=== PATIENT | male | born 1990 | race Hispanic/Latino ===

== ENCOUNTER 2017-11-06 00:53 | Emergency (ER) | payer OTHER ==
[2017-11-06] MEDS ORDERED: IBUPROFEN 400 MG TAB ONE (01:23)
[2017-11-06] MEDS ORDERED: AMOX/K CLAV 875 MG TAB ONE (01:23)
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
== END 2017-11-06 01:33 | disposition home or self-care (01) ==
LOC: ER 00:53
DX: J02.9 Acute pharyngitis, unspecified (principal)
CPT/HCPCS: 87081; 99283

== ENCOUNTER 2020-10-07 09:37 | Emergency (ER) | payer OTHER, SELFPAY ==
--- OUTSIDE RECORDS SUMMARY | 2020-10-07 09:39 | XMS REPORT | Continuity of Care Document ---
:1990 Author Organization [facility] t Address [address] [place] [address] Dr. Belle [address] [place] [id number] Care Team Providers Name Role Phone Unavailable Unavailable Unavailable Problems This patient has no known problems. Allergies, Adverse Reactions, Alerts This patient has no known allergies or adverse reactions. Medications This patient has no known medications. Procedures This patient has no known procedures. Results This patient has no known results.
--- NOTE | 2020-10-07 10:13 | EDPHYS ---
Physician Documentation [facility] Name: Tomi Velasquez Age: 29 yrs Sex: Male : 1990 Arrival Date: 10/07/2020 Time: 09:51 Bed 17 Private MD: ED Physician Richard Shipman HPI: 10/07 10:13 This 29 yrs old Male presents to ER via Ambulatory with complaints of Sore jr8 Throat. 10:13 The patient presents with sore throat. Onset: The symptoms/episode began/occurred jr8 acutely, yesterday. Severity of symptoms: At their worst the symptoms were mild. Modifying factors: The symptoms are alleviated by nothing, the symptoms are aggravated by swallowing, Patient's oral intake status: good The patient has had contact with sick mother, Mom has strep throat and was drinking out of same cup as him this past weekend . Associated signs and symptoms: Pertinent positives: fever, headache, nausea. The patient has not experienced similar symptoms in the past. The patient has not recently seen a physician. Historical: - Allergies: 09:57 No Known Allergies; jl7 - Home Meds: 09:57 None [Active]; jl7 - PMHx: 09:57 None; jl7 - PSHx: 09:57 None; jl7 - Immunization history:: Adult Immunizations unknown. - Social history:: Smoking status: Patient denies any tobacco usage or history of. ROS: 10:13 Constitutional: Positive for body aches, fatigue, fever. jr8 10:13 ENT: Positive for sore throat. 10:13 Abdomen/GI: Positive for nausea, Negative for abdominal pain, vomiting, diarrhea. 10:13 All other systems are negative. Exam: 10:13 Constitutional: This is a well developed, well nourished patient who is awake, alert, jr8 and in no acute distress. Eyes: Pupils equal round and reactive to light, extra-ocular motions intact. Lids and lashes normal. Conjunctiva and sclera are non-icteric and not injected. Cornea within normal limits. Periorbital areas with no swelling, redness, or edema. Neck: Trachea midline, no thyromegaly or masses palpated, and no cervical lymphadenopathy. Supple, full range of motion without nuchal rigidity, or vertebral point tenderness. No Meningismus. Cardiovascular: Regular rate and rhythm with a normal S1 and S2. No gallops, murmurs, or rubs. Normal PMI, no JVD. No pulse deficits. Respiratory: Lungs have equal breath sounds bilaterally, clear to auscultation and percussion. No rales, rhonchi or wheezes noted. No increased work of breathing, no retractions or nasal flaring. Abdomen/GI: Soft, non-tender, with normal bowel sounds. No distension or tympany. No guarding or rebound. No evidence of tenderness throughout. Skin: Warm, dry with normal turgor. Normal color with no rashes, no lesions, and no evidence of cellulitis. MS/ Extremity: Pulses equal, no cyanosis. Neurovascular intact. Full, normal range of motion. Neuro: Awake and alert, GCS 15, oriented to person, place, time, and situation. Motor strength 5/5 in all extremities. Sensory grossly intact. 10:13 ENT: Exam is negative for earache, ear discharge, TM abnormalities, nasal discharge, Mouth: Lips: moist, Oral mucosa: pink and intact, moist, Gums: pink, Tongue: is moist, Posterior pharynx: Airway: patent, Tonsils: with erythema, with exudate, Uvula: midline, edematous, erythema, swelling, is not appreciated, erythema, that is mild, exudate, is not appreciated. Vital Signs: 09:54 BP 124 / 70; Pulse 79; Resp 18; Temp 98.3; Pulse Ox 96% ; Weight 131.54 kg; Height 5 jl7 ft. 11 in. (180.34 cm); Pain 6/10; 09:54 Body Mass Index 40.45 (131.54 kg, 180.34 cm) jl7 MDM: 10:08 Patient medically screened. 8 10:11 Data reviewed: vital signs, nurses notes, lab test result(s), and as a result, I will jr8 discharge patient. Data interpreted: Pulse oximetry: on room air is 96 %. Interpretation: normal. Counseling: I had a detailed discussion with the patient and/or guardian regarding: the historical points, exam findings, and any diagnostic results supporting the discharge/admit diagnosis, lab results, the need for outpatient follow up, a family practitioner, to return to the emergency department if symptoms worsen or persist or if there are any questions or concerns that arise at home. 10/07 09:58 Order name: Strep; Complete Time: 10:15 jl7 10/07 10:16 Order name: Throat Culture EDMS Administered Medications: No medications were administered Disposition: 16:50 Co-signature as Attending Physician, Richard Shipman MD I agree with the assessment and kdr plan of care. Disposition: 10/07/20 10:12 Discharged to Home. Impression: Acute pharyngitis - Bacterial. - Condition is Stable. - Discharge Instructions: Pharyngitis, Strep Throat. - Prescriptions for Amoxicillin 875 mg Oral Tablet - take 1 tablet by ORAL route every 12 hours for 10 days; 20 tablet. - Medication Reconciliation Form, Thank You Letter, Antibiotic Education, Prescription Opioid Use form. - Follow up: Private Physician; When: 1 week; Reason: Recheck today's complaints, Continuance of care, Re-evaluation by your physician. - Problem is new. - Symptoms are unchanged. Signatures: Dispatcher [employer] EDOH Richard Shipman MD MD [facility] Arron Pat PA PA jr8 Lexie Eckert RN RN jl7 Jessy Bhatti RN RN rb3 Corrections: (The following items were deleted from the chart) 10:12 10:12 10/07/2020 10:12 Discharged to Home. Impression: Acute pharyngitis. Condition is jr8 Stable. Forms are Medication Reconciliation Form, Thank You Letter, Antibiotic Education, Prescription Opioid Use. Follow up: Private Physician; When: 1 week; Reason: Recheck today's complaints, Continuance of care, Re-evaluation by your physician. Problem is new. Symptoms are unchanged. jr8 10:29 10:12 10/07/2020 10:12 Discharged to Home. Impression: Acute pharyngitis - Bacterial. rb3 Condition is Stable. Forms are Medication Reconciliation Form, Thank You Letter, Antibiotic Education, Prescription Opioid Use. Follow up: Private Physician; When: 1 week; Reason: Recheck today's complaints, Continuance of care, Re-evaluation by your physician. Problem is new. Symptoms are unchanged. jr8
--- NOTE | 2020-10-07 10:13 | ER ---
Nurse's Notes [facility] Name: Tomi Velasquez Age: 29 yrs Sex: Male : 1990 Arrival Date: 10/07/2020 Time: 09:51 Bed 17 Private MD: Diagnosis: Acute pharyngitis-Bacterial Presentation: 10/07 09:54 Chief complaint: Patient states: Sore throat and body aches since last night, woke with jl7 fever and took DayQuil at 0500 then TheraFlu at 0830; pt's mom dx with strep throat this past weekend. Coronavirus screen: Client denies travel out of the [place] in the last 14 days. At this time, the client does not indicate any symptoms associated with coronavirus-19. Ebola Screen: No symptoms or risks identified at this time. Initial Sepsis Screen: Does the patient meet any 2 criteria? No. Patient's initial sepsis screen is negative. Does the patient have a suspected source of infection? No. Patient's initial sepsis screen is negative. Risk Assessment: Do you want to hurt yourself or someone else? Patient reports no desire to harm self or others. Onset of symptoms was October 06, 2020. Care prior to arrival: None. 09:54 Method Of Arrival: Ambulatory [facility] 09:54 Acuity: WILLARD 4 jl7 Triage Assessment: 09:57 General: Appears in no apparent distress. uncomfortable, Behavior is calm, cooperative, jl7 appropriate for age. Pain: Complains of pain in throat Pain currently is 6 out of 10 on a pain scale. EENT: Throat is clear. Historical: - Allergies: 09:57 No Known Allergies; jl7 - Home Meds: 09:57 None [Active]; jl7 - PMHx: 09:57 None; jl7 - PSHx: 09:57 None; jl7 - Immunization history:: Adult Immunizations unknown. - Social history:: Smoking status: Patient denies any tobacco usage or history of. Screenin:00 Abuse screen: Denies threats or abuse. Nutritional screening: No deficits noted. rb3 Tuberculosis screening: No symptoms or risk factors identified. Fall Risk None identified. Assessment: 10:00 General: Appears in no apparent distress. comfortable, Behavior is calm, cooperative. rb3 Pain: Complains of pain in throat Pain began last night. Neuro: Level of Consciousness is awake, alert, obeys commands, Oriented to person, place, time, situation. Cardiovascular: Patient's skin is warm and dry. Respiratory: Airway is patent Respiratory effort is even, unlabored, Respiratory pattern is regular, symmetrical. GI: No signs and/or symptoms were reported involving the gastrointestinal system. : No signs and/or symptoms were reported regarding the genitourinary system. EENT: Throat is reddened. Vital Signs: 09:54 BP 124 / 70; Pulse 79; Resp 18; Temp 98.3; Pulse Ox 96% ; Weight 131.54 kg; Height 5 jl7 ft. 11 in. (180.34 cm); Pain 6/10; 09:54 Body Mass Index 40.45 (131.54 kg, 180.34 cm) jl7 ED Course: 09:51 Patient arrived in ED. as 09:56 Triage completed. jl7 09:57 Arm band placed on right wrist. jl7 10:00 Patient has correct armband on for positive identification. Bed in low position. Call rb3 light in reach. Side rails up X 1. Pulse ox on. NIBP on. 10:06 Jessy Bhatti, RN is Primary Nurse. rb3 10:07 Arron Pat PA is PHCP. jr8 10:07 Richard Shipman MD is Attending Physician. jr8 10:28 No provider procedures requiring assistance completed. Patient did not have IV access rb3 during this emergency room visit. Administered Medications: No medications were administered Outcome: 10:12 Discharge ordered by . jr8 10:28 Discharged to home ambulatory. rb3 10:28 Condition: stable 10:28 Discharge instructions given to patient, Instructed on discharge instructions, follow up and referral plans. medication usage, Demonstrated understanding of instructions, follow-up care, medications, Prescriptions given X 1. 10:29 Patient left the ED. rb3 Signatures: Fani Antonio Josh, PA PA jr8 Lexie Eckert RN RN jl7 Jessy Bhatti, AMBER RN rb3
[2020-10-07 10:36] VITALS: BP 124/70; TEMP 98.3; O2SAT 96
== END 2020-10-07 10:29 | disposition home or self-care (01) ==
LOC: ER 09:37
DX: J02.9 Acute pharyngitis, unspecified (principal)
CPT/HCPCS: 87070; 87081; 99283